=== PATIENT | male | born 1960 | race African-American/Black ===

== ENCOUNTER 2022-05-07 09:02 | Outpatient (CLI) | payer OTHER ==
--- NOTE | 2022-05-07 11:21 | XRay Report ---
LUMBAR SPINE 3 VIEWS INDICATION: BACK INJURY. COMPARISON: None. IMPRESSION: Normal alignment. Mild discogenic DJD and facet arthropathy are identified at L3-4, L4- 5 and L5-S1. No acute osseous or soft tissue abnormality. Signer Name: Walker Sam Jr, MD Signed: 05/07/2022 11:16 AM Workstation Name: [id number]
== END 2022-05-07 09:03 | disposition home or self-care (01) ==
LOC: XRAY 09:02
PROVIDERS: ATTEND Internal Medicine
DX: M47.817 Spondylosis without myelopathy or radiculopathy, lumbosacral region (principal)
CPT/HCPCS: 72100